=== PATIENT | female | born 2000 | race Caucasian/White ===

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

== ENCOUNTER → 2021-07-20 11:48 | Outpatient (CLI) | payer OTHER, SELFPAY ==
--- NOTE | 2021-07-20 12:00 | RAD_ITS ---
STUDY: X-RAY - ABDOMEN/PELVIS REASON FOR EXAM: Female, 21 years old. Flank pain TECHNIQUE: Two AP supine views of the abdomen and pelvis. COMPARISON: None. FINDINGS: Normal visualized lung bases. There is an unremarkable bowel gas pattern. There is no demonstrated free abdominal air. The visualized liver, spleen and kidneys are grossly normal in size and morphology. No demonstrated calcification overlying either renal shadow, over, there is a subtle 2 mm calcification in the left hemipelvis which could be within the distal left ureter. Normal soft tissue structures. Normal visualized osseous structures. RAD/Abdomen Single View IMPRESSION: Possible left ureteral lithiasis No demonstrated calcifications overlying either renal shadow Electronically Signed: Eloy Scott MD at 13:27 EST , Service support ,
[2021-07-20 13:10] LABS: Mucous, Urine 0 SEEN /hpf (<or=2+)
[2021-07-20 13:35] LABS: Color, Urine Yellow (Yellow); Glucose, Dipstick Normal (Normal); Ketone-Dipstick Negative (Negative); Leukocyte Esterase-Dipstick Negative /ul (Negative); Nitrite-Dipstick Negative (Negative); Occult Blood-Urine 250 /ul (Negative); Protein-Dipstick 15 mg/dl (Negative); Urine Bilirubin Dipstick Negative (Negative); Urine Clarity Sl. Cloudy (Clear); Urine Urobilinogen Normal (Normal)
[2021-07-20 13:52] LABS: Red Blood Cells-Urine > 100 SEEN /hpf (0-5)
[2021-07-20 13:53] LABS: Squamous Epithelial Cells - UA 0-5 SEEN /hpf (5-10); White Blood Cells 0-5 SEEN /hpf (0-5)
[2021-07-20 13:54] LABS: Bacteria RARE /hpf (None Seen)
== END ==
PROVIDERS: Physician Assistant; PCP Family Medicine; Visit Provider Family Medicine
DX: N20.0 Calculus of kidney (principal); R10.9 Unspecified abdominal pain; R30.0 Dysuria
CPT/HCPCS: 74018; 81001; 87086; 87088

== ENCOUNTER 2021-07-23 22:08 | Emergency (ER) | payer OTHER, SELFPAY ==
[2021-07-23 22:08] VITALS: BP 130/92; PULSE 90; RESP 16; TEMP 36.6; O2SAT 100; BMI 24.7
--- NOTE | 2021-07-23 23:10 | CT_ITS ---
STUDY: CT ABDOMEN AND PELVIS WITHOUT CONTRAST REASON FOR EXAM: Female, 21 years old. Pain RADIATION DOSAGE (If Supplied By Facility): CTDIvol = ( 7.10 ) mGy, DLP = ( 338.99 ) mGycm TECHNIQUE: Transaxial images were obtained from the dome of the diaphragm to the symphysis pubis without oral contrast, and without intravenous contrast. Sagittal and coronal images were reconstructed. Individualized dose optimization techniques were used for this CT. COMPARISON: None FINDINGS: The visualized lung bases are unremarkable. The visualized portions of the heart are within normal limits. Normal liver. Normal gallbladder and extrahepatic biliary system. Normal spleen. Normal pancreas. Normal bilateral adrenal glands. Normal right kidney. There is a 4 mm calculus in the distal left ureteral at the ureterovesicular junction causing mild upstream hydroureter and calyceal dilatation. Several additional tiny punctate 1 to 2 mm nonobstructive left renal calculi. Normal visualized stomach. Normal small intestine. Normal colon. The appendix is visualized and appears normal. Normal abdominal aorta. Normal inferior vena cava. Normal retroperitoneum. Normal urinary bladder. Normal abdominal wall. Normal osseous structures. CT/Abdomen/Pelvis without Cont IMPRESSION: 4 mm calculus in the distal left ureter at the ureterovesicular junction. Mild upstream hydroureter. Electronically Signed: Alpesh Beltrán MD at 0:20 EST Tel , Service support ,
--- NOTE | 2021-07-23 23:12 | EDS_ITS ---
HPI HPI - GI History of Present Illness Chief Complaint: Flank Pain Informant: patient Abdominal Pain/Flank Pain Onset: Days Context: Gradual Onset Timing: Continuous Current Severity: Mild Maximum Severity: Mild Worsened by: Nothing Relieved by: Nothing Nausea/Vomiting/Emesis GI Symptom: Negative for Nausea and Vomiting Diarrhea/Melena/Hematochezia GI Symptom: Negative for Diarrhea and Melena Associated Symptoms Associated Symptoms: Negative for Dysuria, Frequency and Hematuria Narrative Narrative: 21-year-old female no sniffing past medical or surgical history currently on control pills and Lexapro. States last Sunday a week ago started having flank pain. At times been on left other times on the right. She was treated in our clinic on July 20 had a KUB and a urinalysis and was told she might have a kidney stone. Today she had one episode of nausea and vomiting and the pain got worse. She denies any dysuria or hematuria. She is never had a kidney stone before she denies any prior abdominal surgery she has had no abdominal or back trauma. No fever. Prior similar symptoms: No Recent Illness/Hospitalization: No PFSH PFSH Medical History ACL (anterior cruciate ligament) tear Contact dermatitis due to poison debbie Hematuria Low back pain Home Medications norethindrone-ethin estradiol 1 ea PO DAILY 08/02/19 [History Last Taken 08/02/19] escitalopram oxalate 5 mg tablet 10 mg PO DAILY 04/14/21 [History Last Taken Unknown] Allergy/AdvReac Type Severity Reaction Status Date / Time No Known Allergies Allergy Verified 07/23/21 22:13 Social History Smoking Status: Never smoker ROS ROS ED ROS Narrative Back pain. Review of Systems ROS Unobtainable: Denies due to encephalopathy Constitutional Constitutional ED: Denies fever(s) ENT ENT ED: Denies ear pain Cardiovascular Cardiovascular: Denies chest pain Respiratory/Chest Respiratory/Chest: Denies dyspnea Gastrointestinal Gastrointestinal: Reports nausea and vomiting; Denies abdominal pain Genitourinary Genitourinary ED: Denies dysuria Musculoskeletal Musculoskeletal: Reports back pain; Denies myalgias Integumentary Denies rash Neurologic Neurologic: Denies headache(s) Psychiatric Psychiatric: Denies depression Endocrine Endocrinology: Denies polyuria Hematologic/Lymphatic Hematologic/Lymphatic: Denies easy bruising Allergic/Immunologic Allergic/Immunologic ED: Denies urticaria EXAM Physical Exam Narrative Exam Narrative: Young healthy female no acute distress vital signs stable afebrile. HEENT exam unremarkable. Neck nontender. Lungs clear to auscultation. Heart regular rhythm no murmur. Abdomen soft nontender. Moving all 4 extremities. Calves are nontender without edema or cords. Back there is no reproducible back tenderness or any signs of trauma. Moving all 4 ext remities. Nontender no edema. Neurologically awake and alert. No focal motor deficits. Young female with a very benign exam with no reproducible pain. Const Vital Signs: 07/23/21 22:08 07/24/21 00:36 Temperature 97.9 F Temperature Source Temporal Pulse Rate 90 99 Respiratory Rate 16 16 Blood Pressure 130/92 H 138/94 H Blood Pressure Mean 104 108 Pulse Ox 100 100 Oxygen Delivery Method Room Air Room Air Positive well nourished and well developed; Negative for obese, cachectic, contractures or unkempt General Appearance ED: well developed and NAD; Negative for unkempt, cachectic or contractures Nutritional Appearance: Negative for cachectic or obese HEENT Reports moist mucous membranes normocephalic and atraumatic Eyes PERRL and EOMs intact bilaterally Neck no lymphadenopathy, supple and no JVD General: Negative for tenderness Resp normal respiratory effort and clear to auscultation bilaterally Cardio regular rate, regular rhythm, S1 normal heart sound, S2 normal heart sound and no murmurs GI non-tender, non-distended and no masses Auscultation: normoactive bowel sounds Palpation: soft; Negative for tender, guarding or rigid Back/Spine no CVA tenderness General Back: Negative for CVA tenderness Cervical Spine: Negative for cervical spine tenderness Thoracic Spine / Upper Back: Negative for thoracic spinal tenderness Lumbar Spine / Lower Back: Negative for lumbar spinal tenderness Extremity full ROM General Extremety ED: Negative for edema or tenderness General Extremity: Negative for edema Neuro moves all extremities Sensorium / Orientation: alert, oriented to person, oriented to place and oriented to time; Negative for confused, lethargic or stuporous Motor Exam: strength 5/5 throughout Psych mental status grossly normal and thought process normal Appearance: Negative for unkempt Skin Lesions: no lesions Rashes: no rashes MDM MDM MDM Narrative Medical decision making narrative: 21-year-old female with flank pain is been going on now a week. She had a KUB and a urinalysis. Thought to possibly have a kidney stone. Pain is worse today. She has a sister with kidney stones but she is never had one herself. She has no back trauma. Exam is benign. She undergo a CAT scan and labs. She does not need anything for pain or nausea at this time. Repeat exam patient is doing well at 12:45 AM. She will be discharged to home. She chose to treat her pain with ibuprofen and Tylenol. Lab Data Attestation: I reviewed the patient's lab results. Lab results narrative: CBC unremarkable white count 9. Hemoglobin 13. Electrolytes show potassium of 3.1 gap of 5 normal BUN and creatinine of 1 glucose 95 urine no nitrites 5-10 red cells no white cells 1+ bacteria. Serum test negative. CAT scan showed a 4 mm distal ureter stone with mild hydroureter. Labs: Laboratory Results - last 24 hr 07/23/21 07/23/21 07/23/21 22:24 22:27 22:27 WBC 9.1 RBC 4.00 L Hgb 13.2 Hct 38.0 MCV 95.0 MCH 33.0 H MCHC 34.7 RDW Std Deviation 42.2 RDW Coeff of [place] 12.0 Plt Count 254 MPV 10.1 Immature Gran % (Auto) 0.300 Neut % (Auto) 65.5 Lymph % (Auto) 21.2 [place] % (Auto) 10.4 H Eos % (Auto) 2.3 Baso % (Auto) 0.3 Absolute Neuts (auto) 6.0 Absolute Lymphs (auto) 1.94 Nucleated RBC % 0 Sodium 139 Potassium 3.1 L Chloride 107 Carbon Dioxide 27.0 Anion Gap 5 BUN 9 Creatinine 1.07 H Estim Creat Clear Calc 77.86 Est GFR (MDRD) Af Amer 83 Est GFR (MDRD) Non-Af 68 BUN/Creatinine Ratio 8.4 L Glucose 95 Calcium 8.6 Serum , Qual Urine Color Yellow Urine Clarity Clear Urine pH 5.0 Ur Specific [place] 1.025 Urine Protein 15 H Urine Glucose (UA) Normal Urine Ketones Negative Urine Occult Blood 50 H Urine Nitrite Negative Urine Bilirubin Negative Urine Urobilinogen Normal Ur Leukocyte Esterase Negative Urine RBC 5-10 SEEN Urine WBC 0-5 SEEN Ur Squamous Epith Cells 0-5 SEEN Urine Bacteria 1+ Urine Mucus 2+ 07/23/21 22:27 WBC RBC Hgb Hct MCV MCH MCHC RDW Std Deviation RDW Coeff of [place] Plt Count MPV Immature Gran % (Auto) Neut % (Auto) Lymph % (Auto) [place] % (Auto) Eos % (Auto) Baso % (Auto) Absolute Neuts (auto) Absolute Lymphs (auto) Nucleated RBC % Sodium Potassium Chloride Carbon Dioxide Anion Gap BUN Creatinine Estim Creat Clear Calc Est GFR (MDRD) Af Amer Est GFR (MDRD) Non-Af BUN/Creatinine Ratio Glucose Calcium Serum , Qual NEGATIVE Urine Color Urine Clarity Urine pH Ur Specific [place] Urine Protein Urine Glucose (UA) Urine Ketones Urine Occult Blood Urine Nitrite Urine Bilirubin Urine Urobilinogen Ur Leukocyte Esterase Urine RBC Urine WBC Ur Squamous Epith Cells Urine Bacteria Urine Mucus Radiography Diagnostic Testing: Clinical Impression(s) from Imaging Studies Abdomen/Pelvis CT 07/23/21 23:10 IMPRESSION: 4 mm calculus in the distal left ureter at the ureterovesicular junction. Mild upstream hydroureter. Electronically Signed: Alpesh Beltrán MD at 0:20 EST Tel , Service support , Discharge Plan Triage Chief Complaint: Flank Pain ED Provider: Santo Sheikh Dx/Rx/DC Orders Clinical Impression: Low back pain, Kidney stone on left side Instructions: ED Kidney Stone w/ Colic Prescriptions: No Action escitalopram oxalate [Lexapro] 5 mg tablet 10 mg PO DAILY RF: 0 norethindrone-ethin estradiol 1 EACH tablet 1 ea PO DAILY RF: 0 Primary Care Provider: Ama Ornelas Referrals: Ama Ornelas DO [Primary Care Provider] - 3-5 Days if not improving Activity Restrictions/Additional Instructions: Plenty of fluids and rest. Motrin and Tylenol for pain. Follow-up with your doctor if not improving. Return if increasing pain, fever or intractable vomiting. You have a 4 mm kidney stone almost to your bladder on the left. It should pass. Disposition Disposition: Home, Self Care
[2021-07-23 23:26] LABS: Color, Urine Yellow (Yellow); Glucose, Dipstick Normal (Normal); Ketone-Dipstick Negative (Negative); Leukocyte Esterase-Dipstick Negative /ul (Negative); Nitrite-Dipstick Negative (Negative); Occult Blood-Urine 50 /ul (Negative); Protein-Dipstick 15 mg/dl (Negative); Specific Gravity, Urine 1.025 (1.002-1.030); Urine Bilirubin Dipstick Negative (Negative); Urine Clarity Clear (Clear); Urine Urobilinogen Normal (Normal)
[2021-07-23 23:30] LABS: Internal QC Validated? YES +Cl - CLEAR BKGD; Pregnancy, Serum, hCG Quali. NEGATIVE Negative
[2021-07-23 23:34] LABS: Anion Gap 5 (5-15); BUN 9 mg/dL (7-18); BUN/Creat Ratio 8.4 RATIO (10-20); Calcium,Total 8.6 mg/dL (8.5-10.1); Chloride 107 mmol/L (98-107); Creatinine, Serum 1.07 mg/dL (0.55-1.02); EST Glomerular Filtration Rate 68 mL/min (>60); Est Glom Filt Rate - Afr Amer 83 mL/min (>60); Estimated Creatinine Clearance 77.86 ml/min; Glucose 95 mg/dL (74-106); Potassium 3.1 mmol/L (3.5-5.1); Sodium Level 139 mmol/L (136-145)
[2021-07-23 23:38] LABS: Absolute Lymphocyte Count 1.94 X10^3/uL (0.83-4.51); Basophil# 0.03 X10^3/uL; Basophil% 0.3 % (0-1); Eosinophil# 0.21 X10^3/uL; Eosinophils% 2.3 % (0-5); Hemoglobin 13.2 g/dL (12.0-15.0); Lymphocyte # 1.94 X10^3/ul (0.83-4.51); Lymphocyte % 21.2 % (19-41); Mean Corp Hgb Conc 34.7 g/dL (32-36); Mean Platelet Vol. 10.1 fl (6.2-12.0); Monocyte# 0.95 X10^3/uL; Monocyte% 10.4 % (0-10); NRBC Flagged by Analyzer 0 % (0-5); Neutrophil # 5.98 X10^3/uL (2.7-7.7); Neutrophil % 65.5 % (47-70); Platelet Count 254 K/mm3 (150-450); RBC Distribution Width SD 42.2 fl (35.1-43.9); White Blood Count 9.1 K/mm3 (4.4-11.0)
[2021-07-23 23:51] LABS: Bacteria 1+ /hpf (None Seen); Mucous, Urine 2+ /hpf (<or=2+); Red Blood Cells-Urine 5-10 SEEN /hpf (0-5); Squamous Epithelial Cells - UA 0-5 SEEN /hpf (5-10); White Blood Cells 0-5 SEEN /hpf (0-5)
[2021-07-24 00:36] VITALS: BP 138/94; PULSE 99; RESP 16; O2SAT 100
== END 2021-07-24 00:58 | disposition home or self-care (01) ==
PROVIDERS: Emergency Provider Emergency Medicine; PCP Family Medicine
DX: N20.2 Calculus of kidney with calculus of ureter (principal); M54.50 Low back pain, unspecified
CPT/HCPCS: 74176; 80048; 81001; 84703; 85025; 99283; A4216

== ENCOUNTER → 2021-08-16 14:06 | Outpatient (CLI) | payer OTHER, SELFPAY ==
[2021-08-22 14:04] LABS: HPV Reflexed? NOT INDICATED
== END ==
PROVIDERS: PCP Family Medicine; Visit Provider Obstetrics & Gynecology
DX: Z12.4 Encounter for screening for malignant neoplasm of cervix (principal)
CPT/HCPCS: 88175; G0145

== ENCOUNTER 2021-10-26 12:02 | Outpatient (CLI) | payer OTHER, SELFPAY ==
[2021-10-26 15:42] LABS: AST(SGOT) 21 U/L (15-37); Alanine Aminotransfer ALT/SGPT 20 U/L (13-56); Albumin, Serum 4.2 g/dL (3.2-5.0); Alkaline Phosphatase 62 U/L (45-117); Anion Gap 7 (5-15); BUN 7 mg/dL (7-18); BUN/Creat Ratio 8.6 RATIO (10-20); Calcium,Total 9.6 mg/dL (8.5-10.1); Chloride 105 mmol/L (98-107); Cholesterol 209 mg/dL (200); Creatinine, Serum 0.81 mg/dL (0.55-1.02); EST Glomerular Filtration Rate 94 mL/min (>60); Est Glom Filt Rate - Afr Amer 113 mL/min (>60); Free T3 2.5 pg/mL (2.18-3.98); Globulin 4.2 g/dL (2.2-4.2); Glucose 80 mg/dL (74-106); High Density Lipoprotein 60 mg/dL; Iron 49 ug/dL (50-170); Potassium 3.7 mmol/L (3.5-5.1); Protein, Total 8.4 g/dL (6.4-8.2); Sodium Level 138 mmol/L (136-145); Thyroid Stim Hormone (TSH) 1.86 uIU/mL (0.358-3.74); Triglycerides 88 mg/dL; Very Low Density Lipoprotein 18 mg/dL (5-40)
[2021-10-26 16:02] LABS: Hepatitis B Surface Antibody Reactive; Rubella IgG Reactive (Nonreactive); Vitamin B12 408 pg/mL (211-911); Vitamin D,25 Hydroxy 26.8 ng/mL
[2021-10-28 22:07] LABS: QNTFERON TB Mitogen Value > 10.00 IU/mL (.); QNTFERON TB Nil Value 0.07 IU/mL (.); QNTFERON TB1+ Ag Value 0.09 IU/mL (.); QNTFERON TB2+ Ag Value 0.08 IU/mL (.)
[2021-10-28 22:18] LABS: Mumps Antibody,IgG < 9.0 AU/mL (Immune >10.9); QNTIFERON TB Positive Criteria Negative (Negative); Rubeola IgG Ab 44.8 AU/mL (Immune >16.4); V-Zoster IgG (Immunity) 1491 index (Immune >165)
== END 2021-10-26 23:59 | disposition home or self-care (01) ==
LOC: MTLAB 12:04
PROVIDERS: PCP Family Medicine; Referring Provider Family Medicine; Visit Provider Family Medicine
DX: E03.9 Hypothyroidism, unspecified (principal); Z01.84 Encounter for antibody response examination; E55.9 Vitamin D deficiency, unspecified; E53.8 Deficiency of other specified B group vitamins; D64.9 Anemia, unspecified; Z91.89 Other specified personal risk factors, not elsewhere classified
CPT/HCPCS: 36415; 80053; 80061; 82306; 82607; 83540; 84439; 84443; 84481; 86480; 86706; 86735; 86762; 86765; 86787

== ENCOUNTER → 2022-11-04 | Outpatient (CLI) | payer OTHER, SELFPAY ==
[2022-11-04 15:02] LABS: Mucous, Urine 0 SEEN /hpf (<or=2+); White Blood Cells 0 SEEN /hpf (0-5)
[2022-11-04 15:14] LABS: Color, Urine Yellow (Yellow); Glucose, Dipstick Normal (Normal); Ketone-Dipstick 15 mg/dl (Negative); Leukocyte Esterase-Dipstick Negative /ul (Negative); Nitrite-Dipstick Negative (Negative); Occult Blood-Urine 250 /ul (Negative); Protein-Dipstick 15 mg/dl (Negative); Specific Gravity, Urine 1.005 (1.002-1.030); Urine Bilirubin Dipstick Negative (Negative); Urine Clarity Clear (Clear); Urine Urobilinogen Normal (Normal)
[2022-11-04 15:23] LABS: Squamous Epithelial Cells - UA 0-5 SEEN /hpf (5-10)
[2022-11-04 15:24] LABS: Bacteria RARE /hpf (None Seen); Red Blood Cells-Urine 0-5 SEEN /hpf (0-5)
== END | disposition home or self-care (01) ==
PROVIDERS: PCP Family Medicine; Visit Provider Physician Assistant
DX: R31.9 Hematuria, unspecified (principal)
CPT/HCPCS: 81001; 87086

== ENCOUNTER → 2022-11-07 | Outpatient (CLI) | payer OTHER, SELFPAY ==
[2022-11-17 09:06] LABS: Source Not Provided
== END | disposition home or self-care (01) ==
LOC: LAB.FUTURE 11-09 08:25
PROVIDERS: PCP Family Medicine; Referring Provider Family Medicine; Visit Provider Family Medicine
DX: N20.0 Calculus of kidney (principal)
CPT/HCPCS: 82360

== ENCOUNTER → 2023-12-03 | Outpatient (CLI) | payer OTHER, SELFPAY ==
[2023-12-03 10:25] LABS: Absolute Lymphocyte Count 1.34 X10^3/uL (0.83-4.51); Basophil# 0.03 X10^3/uL; Basophil% 0.4 % (0-1); Eosinophil# 0.02 X10^3/uL; Eosinophils% 0.3 % (0-5); Hematocrit 43.6 % (37-47); Hemoglobin 15.4 g/dL (12.0-15.0); Lymphocyte # 1.34 X10^3/ul (0.83-4.51); Lymphocyte % 19.2 % (19-41); Mean Corp Hgb Conc 35.3 g/dL (32-36); Mean Corpuscular Hgb 33.4 pg (27.0-32.0); Mean Corpuscular Volume 94.6 fL (81-99); Mean Platelet Vol. 10.3 fl (6.2-12.0); Monocyte# 0.55 X10^3/uL; Monocyte% 7.9 % (0-10); NRBC Flagged by Analyzer 0 % (0-5); Neutrophil # 5.02 X10^3/uL (2.7-7.7); Neutrophil % 72.1 % (47-70); Platelet Count 315 K/mm3 (150-450); RBC Distribution Width CV 11.6 % (11.6-14.6); RBC Distribution Width SD 39.6 fl (35.1-43.9); Red Blood Count 4.61 M/mm3 (4.2-5.4)
[2023-12-03 11:13] LABS: AST(SGOT) 26 U/L (15-37); Alanine Aminotransfer ALT/SGPT 36 U/L (13-56); Albumin, Serum 4.1 g/dL (3.2-5.0); Alkaline Phosphatase 52 U/L (45-117); Anion Gap 7 (5-15); BUN 6 mg/dL (7-18); BUN/Creat Ratio 7.6 RATIO (10-20); Calcium,Total 9.2 mg/dL (8.5-10.1); Chloride 105 mmol/L (98-107); Creatinine, Serum 0.79 mg/dL (0.55-1.02); EST Glomerular Filtration Rate 95 mL/min (>60); Est Glom Filt Rate - Afr Amer 115 mL/min (>60); Free T3 2.7 pg/mL (2.18-3.98); Glucose 92 mg/dL (74-106); Magnesium 2.2 mg/dL (1.6-2.6); Potassium 3.1 mmol/L (3.5-5.1); Protein, Total 8.1 g/dL (6.4-8.2); Sodium Level 138 mmol/L (136-145); T4 Free Direct 1.49 ng/dL (0.76-1.46); Thyroid Stim Hormone (TSH) 1.46 uIU/mL (0.358-3.74)
== END | disposition home or self-care (01) ==
LOC: MTLAB 09:19
PROVIDERS: PCP Family Medicine; Referring Provider Family Medicine; Visit Provider Family Medicine
DX: R19.7 Diarrhea, unspecified (principal); R53.83 Other fatigue; B34.9 Viral infection, unspecified; R00.0 Tachycardia, unspecified
CPT/HCPCS: 36415; 80053; 83735; 84439; 84443; 84481; 85025; 87506

== ENCOUNTER → 2025-06-17 | Outpatient (CLI) | payer OTHER, SELFPAY ==
--- NOTE | 2025-06-17 07:27 | US_ITS ---
PROCEDURE: ABDOMEN LIMITED 06/17/2025 REASON FOR EXAM: RUQ PAIN, RIGHT FLANK PAIN, NAUSEA TECHNIQUE: Procedure Code: USABDL Modality: US Procedure: ABDOMEN LIMITED COMPARISON: None FINDINGS: GALLBLADDER: No gallstones. no gallbladder wall thickening or pericholecystic fluid. Negative Aguilera sign. COMMON BILE DUCT: Measures 3.2 mm. No intrahepatic biliary dilatation. LIVER: Normal size. Normal echotexture. No definite hepatic mass. RIGHT KIDNEY: Normal in size and echogenicity. No mass. No urinary stones. No hydronephrosis. US/Abdomen Limited IMPRESSION: No acute cholecystitis. Reading Location: [id number]
--- NOTE | 2025-06-17 07:27 | US_ITS ---
PROCEDURE: ABDOMEN LIMITED 06/17/2025 REASON FOR EXAM: RUQ PAIN, RIGHT FLANK PAIN, NAUSEA TECHNIQUE: Procedure Code: USABDL Modality: US Procedure: ABDOMEN LIMITED COMPARISON: None FINDINGS: GALLBLADDER: No gallstones. no gallbladder wall thickening or pericholecystic fluid. Negative Aguilera sign. COMMON BILE DUCT: Measures 3.2 mm. No intrahepatic biliary dilatation. LIVER: Normal size. Normal echotexture. No definite hepatic mass. RIGHT KIDNEY: Normal in size and echogenicity. No mass. No urinary stones. No hydronephrosis. US/Abdomen Limited IMPRESSION: No acute cholecystitis. Reading Location: [id number]
--- OUTSIDE RECORDS SUMMARY | 2025-06-17 07:36 | XMS RPT_ITS | CCD ---
Author Organization [facility] Care Team Providers Care Stapler Coil Unit Name Role Phone Dr. Ama Ornelas Primary Care Provider [phone] Dr. Ama Ornelas Referring Provider CINDY London Attending Provider Dr. Azul Rene Attending Provider [phone] CINDY Padilla Attending Provider [phone] Malys, Ama Primary Care Unavailable Malys, Ama Attending Unavailable Malys, Ama Referring Unavailable Assessment, Health Risk Attending Unavaila ble Assessment, Health Risk Referring Unavaila ble Malys, Ama Primary Care Unavailable Malys, Ama Primary Care Unavailable Malys, Ama Attending Unavailable Malys, Ama Referring Unavailable Medications Current Medications Medication Drug Class(es) Dates Sig (Normalized) Sig (Original) escitalopram 5 mg oral tablet (3 sources) Serotonin Reuptake Inhibitor Start: 04-14-2021 take 2 tablets by mouth once daily Escitalopram Oxalate (Lexapro) 5 mg tablet Active 10 MG PO DAILY April 14, 2021 12:00am Norethindrone-Ethin Estradiol (6 sources) Estrogen Start: 10-27-2022 take 1 tablet by mouth once daily Norethindrone-Ethin Estradiol Active 1 TABLET PO DAILY October 27, 2022 2:11pm Start: 08-02-2019 End: 10-27-2022 Norethindrone-Ethin Estradio l Discontinued 1 EACH PO DAILY August 02, 2019 1:00am October 27, 2022 2:11pm Completed/Discontinued Medications Medication Drug Class(es) Dates Sig (Normalized) Sig (Original) amoxicillin 875 mg / clavulanate 125 mg oral tablet (3 sources) Penicillin-class Antibacterial Start: 01-06-2022 End: 01-16-2022 take 1 tablet by mouth every twelve hours Amoxicillin-Pot Clavulanate Discontinued 1 TABLET PO Q12H 08 06January 06, 2022 12:00am January 16, 2022 12:03am dexamethasone 6 mg oral tablet (3 sources) Corticosteroid Start: 08-16-2022 End: 10-27-2022 take 6 mg by mouth once daily Dexamethasone Discontinued 6 MG PO DAILY August 16, 2022 1:00am October 27, 2022 2:01pm Problems Problem Classification Problem Date Documented Da te Episodic/Chronic Allergic reactions (3 sources) Contact dermatitis due to poison debbie; Translations: [Allergic contact dermatitis due to plants, except food] 04-14-2021 Episodic Anxiety disorders (3 sources) Anxiety; Translations: [Anxiety disorder, unspecified] 10-27-2022 Chronic Calculus of urinary tract (3 sources) Kidney stone; Translations: [Calculus of kidney] 08-01-2021 Episodic Cardiac dysrhythmias (3 sources) ECG: sinus tachycardia; Translations: [Tachycardia, unspecified] 08-02-2019 Episodic Fever of unknown origin (3 sources) Pyrexia of unknown origin; Translations: [Fever, unspecified] 08-02-2019 Episodic Fluid and electrolyte disorders (6 sources) Dehydration; Translations: [Dehydration] 08-04-2019 Episodic Genitourinary symptoms and ill-defined conditions (5 sources) Blood in urine; Translations: [Hematuria, unspecified] 07-20-2021 Episodic Immunizations and screening for infectious disease (4 sources) Contact with and (suspected) exposure to other viral communicable diseases; Translations: [Contact with or suspected exposure to other viral communicable disease] 01-06-2022 Episodic Other gastrointestinal disorders (1 source) Diarrhea, unspecified; Translations: [Diarrhea, unspecified] Onset: 12-07-2023 Episodic Other upper respiratory infections (3 sources) Sinusitis; Translations: [Chronic sinusitis, unspecified] 01-06-2022 Chronic Spondylosis; intervertebral disc disorders; other back problems (3 sources) Low back pain; Translations: [Low back pain] 07-24-2021 Episodic Unclassified (3 sources) No history of clinical finding in subject; Translations: [No significant past medical history] 08-02-2019 Viral infection (8 sources) Disease caused by 2019-nCoV; Translations: [COVID-19] 08-16-2022 Episodic Results Test Name Value Interpretation Reference Range Facility ENTERIC PATHOGEN PANEL STOOL on 12-04-2023 EP PANEL Not detected for Campylobacter group, Salmonella species, Shigella species, Vibrio Group, Yersinia enterocolitica, EHEC (Shiga Toxin 1, Shiga Toxin 2), Norovirus Gl/Gll, and Rotavirus A. Other common stool pathogens are not detected on this panel include: Aeromonas/Plesiomo ben or parasites. Order testing for these organisms separately if suspected. This is an amplified DNA test which makes it both specific and sensitive. Normal Reference Range = Not Detected GI pathogens Pnl Stl AVNI+probe Nucleic acid amplification test method CAMPYLOBACTER Not Detected Norovirus Not Detected Rotavirus Not Detected Salmonella Not Detected Shiga Toxin Not Detected Shigella sp. Not Detected VIBRIO Not Detected Yersinia Not Detected Normal [facility] Comment on above: Performed By: #### L 500.4050, L506.0400, L100.0100, L501.5200, L501.75822, L501.9520, M100.637 #### [facility] [address] [place], [address] Absolute lymphocyte countOrd ered By: Ama Ornelas on 12-03-2023 Lymphocytes Auto (Unsp spec) [#/Vol] 1.34 10*3/uL 0.83-4.51 [facility] Automated lymphocyte count a s percentage of total leukocytesOrdered By: Ama Ornelas on 12-03-2023 Lymphocytes/100 WBC Auto (Unsp spec) 19.2 % 19-41 [facility] Basophil percentageOrdered B y: Ama Ornelas on 12-03-2023 Basophils/100 WBC (Bld) 0.4 % 0-1 [facility] Bilirubin [Mass/Vol] 0.80 mg/dL 0.20-1.00 [facility] Comment on above: For patients on eltr ombopag therapy, use of Dimension [place] TBIL is not recommended. Chloride [Moles/Vol] 105 mmol/L 98-107 [facility] Eosinophils/100 WBC (Bld) 0.3 % 0-5 [facility] Glucose [Mass/Vol] 92 mg/dL 74-106 [facility] Hemoglobin (Bld) [Mass/Vol] 15.4 g/dL 12.0-15.0 [facility] Monocytes/100 WBC (Bld) 7.9 % 0-10 [facility] Neutrophils (Bld) [#/Vol] 5.0 10*3/uL 2.0-7.7 [facility] Neutrophils/100 WBC (Bld) 72.1 % 47-70 [facility] Potassium [Moles/Vol] 3.1 mmol/L 3.5-5.1 [facility] Protein [Mass/Vol] 8.1 g/dL 6.4-8.2 [facility] Sodium [Moles/Vol] 138 mmol/L 136-145 [facility] WBC (Bld) [#/Vol] 7.0 10*3/uL 4.4-11.0 [facility] CBC W/Diff, Automatedon 11-18 Absolute Lymph 1.34 X10 3/uL Normal 0.83-4.51 [facility] Comment on above: Performed By: #### L 500.4050, L506.0400, L100.0100, L501.5200, L501.75029, L501.9520, M100.637 #### [facility] [address] [facility] [place], [address] Absolute Neut 5.0 X10 3/uL Normal 2.0-7.7 [facility] Comment on above: Performed By: #### L 500.4050, L506.0400, L100.0100, L501.5200, L501.13468, L501.9520, M100.637 #### [facility] [address] [place], [address] Basophils/100 WBC (Bld) 0.4 % Normal 0-1 [facility] Comment on above: Performed By: #### L 500.4050, L506.0400, L100.0100, L501.5200, L501.35923, L501.9520, M100.637 #### [facility] [address] [place], [address] Eosinophils/100 WBC (Bld) 0.3 % Normal 0-5 [facility] Comment on above: Performed By: #### L 500.4050, L506.0400, L100.0100, L501.5200, L501.47201, L501.9520, M100.637 #### [facility] [address] [place], [address] Erythrocyte distribution width (RBC) [Ratio] 11.6 % Normal 11.6-14.6 [facility] Comment on above: Performed By: #### L 500.4050, L506.0400, L100.0100, L501.5200, L501.45864, L501.9520, M100.637 #### [facility] [address] [place], [address] Hematocrit (Bld) [Volume fraction] 43.6 % Normal 37-47 [facility] Comment on above: Performed By: #### L 500.4050, L506.0400, L100.0100, L501.5200, L501.64550, L501.9520, M100.637 #### [facility] [address] [place], [address] Hemoglobin (Bld) [Mass/Vol] 15.4 g/dL High 12.0-15.0 [facility] Comment on above: Performed By: #### L 500.4050, L506.0400, L100.0100, L501.5200, L501.49307, L501.9520, M100.637 #### [facility] [address] [place], [address] IG% 0.100 Normal 0.0-0.9 [facility] Comment on above: Result Comment: IG% - Immature Granulocytes (promyelocytes, myelocytes and metamyelocytes) > 1% indicates that a LEFT SHIFT is Present. Performed By: #### L 500.4050, L506.0400, L100.0100, L501.5200, L501.10858, L501.9520, M100.637 #### [facility] [address] [place], [address] Lymphocytes/100 WBC (Bld) 19.2 % Normal 19-41 [facility] Comment on above: Performed By: #### L 500.4050, L506.0400, L100.0100, L501.5200, L501.20449, L501.9520, M100.637 #### [facility] [address] [place], [address] MCH (RBC) [Entitic mass] 33.4 pg High 27.0-32.0 [facility] Comment on above: Performed By: #### L 500.4050, L506.0400, L100.0100, L501.5200, L501.00127, L501.9520, M100.637 #### [facility] [address] [place], [address] MCHC (RBC) [Mass/Vol] 35.3 g/dL Normal 32-36 [facility] Comment on above: Performed By: #### L 500.4050, L506.0400, L100.0100, L501.5200, L501.83890, L501.9520, M100.637 #### [facility] [address] [place], [address] MCV (RBC) [Entitic vol] 94.6 fL Normal 81-99 [facility] Comment on above: Performed By: #### L 500.4050, L506.0400, L100.0100, L501.5200, L501.06952, L501.9520, M100.637 #### [facility] [address] [place], [address] Monocytes/100 WBC (Bld) 7.9 % Normal 0-10 [facility] Comment on above: Performed By: #### L 500.4050, L506.0400, L100.0100, L501.5200, L501.44828, L501.9520, M100.637 #### [facility] [address] [place], [address] Neutrophils/100 WBC (Bld) 72.1 % High 47-70 [facility] Comment on above: Performed By: #### L 500.4050, L506.0400, L100.0100, L501.5200, L501.95929, L501.9520, M100.637 #### [facility] [address] [place], [address] Nucleated RBC (Bld) [#/Vol] 0 10*3/uL Normal 0-5 [facility] Comment on above: Performed By: #### L 500.4050, L506.0400, L100.0100, L501.5200, L501.54284, L501.9520, M100.637 #### [facility] [address] [place], [address] Platelet mean volume (Bld) [Entitic vol] 10.3 fL Normal 6.2-12.0 [facility] Comment on above: Performed By: #### L 500.4050, L506.0400, L100.0100, L501.5200, L501.31879, L501.9520, M100.637 #### [facility] [address] [place], [address] Platelets (Bld) [#/Vol] 315 10*3/uL Normal 150-450 [facility] Comment on above: Performed By: #### L 500.4050, L506.0400, L100.0100, L501.5200, L501.72910, L501.9520, M100.637 #### [facility] [address] [place], [address] RBC (Bld) [#/Vol] 4.61 10*6/uL Normal 4.2-5.4 [facility] Comment on above: Performed By: #### L 500.4050, L506.0400, L100.0100, L501.5200, L501.02070, L501.9520, M100.637 #### [facility] [address] [place], [address] RDW SD 39.6 fl Normal 35.1-43.9 [facility] Comment on above: Performed By: #### L 500.4050, L506.0400, L100.0100, L501.5200, L501.48988, L501.9520, M100.637 #### [facility] [address] [place], [address] WBC (Bld) [#/Vol] 7.0 10*3/uL Normal 4.4-11.0 [facility] Comment on above: Performed By: #### L 500.4050, L506.0400, L100.0100, L501.5200, L501.12391, L501.9520, M100.637 #### [facility] [address] [place], [address] Comprehensive Metabolic Prof akon 12-03-2023 Albumin [Mass/Vol] 4.1 g/dL Normal 3.2-5.0 [facility] Comment on above: Performed By: #### L 500.4050, L506.0400, L100.0100, L501.5200, L501.02488, L501.9520, M100.637 #### [facility] [address] [place], [address] Albumin/Globulin [Mass ratio] 1.0 {ratio} Normal 0.9-2.4 [facility] Comment on above: Performed By: #### L 500.4050, L506.0400, L100.0100, L501.5200, L501.37556, L501.9520, M100.637 #### [facility] [address] [place], [address] ALK P 52 U/L Normal 45-117 [facility] Comment on above: Performed By: #### L 500.4050, L506.0400, L100.0100, L501.5200, L501.33852, L501.9520, M100.637 #### [facility] [address] [place], [address] ALT [Catalytic activity/Vol] 36 U/L Normal 13-56 [facility] Comment on above: Performed By: #### L 500.4050, L506.0400, L100.0100, L501.5200, L501.45558, L501.9520, M100.637 #### [facility] [address] [place], [address] AST [Catalytic activity/Vol] 26 U/L Normal 15-37 [facility] Comment on above: Performed By: #### L 500.4050, L506.0400, L100.0100, L501.5200, L501.59240, L501.9520, M100.637 #### [facility] [address] [place], [address] Bilirubin [Mass/Vol] 0.80 mg/dL Normal 0.20-1.00 [facility] Comment on above: Result Comment: For patients on eltrombopag therapy, use of Dimension Douglas TBIL is not recommended. Performed By: #### L 500.4050, L506.0400, L100.0100, L501.5200, L501.49068, L501.9520, M100.637 #### [facility] [address] [place], [address] BUN/CRE 7.6 RATIO Low 10-20 [facility] Comment on above: Performed By: #### L 500.4050, L506.0400, L100.0100, L501.5200, L501.03489, L501.9520, M100.637 #### [facility] [address] [place], [address] CA,Total 9.2 mg/dL Normal 8.5-10.1 [facility] Comment on above: Performed By: #### L 500.4050, L506.0400, L100.0100, L501.5200, L501.09539, L501.9520, M100.637 #### [facility] [address] [place], [address] Chloride [Moles/Vol] 105 mmol/L Normal 98-107 [facility] Comment on above: Performed By: #### L 500.4050, L506.0400, L100.0100, L501.5200, L501.93851, L501.9520, M100.637 #### [facility] [address] [place], [address] CO2 [Moles/Vol] 26.0 mmol/L Normal 21.0-32.0 [facility] Comment on above: Performed By: #### L 500.4050, L506.0400, L100.0100, L501.5200, L501.76403, L501.9520, M100.637 #### [facility] [address] [place], [address] Creatinine [Mass/Vol] 0.79 mg/dL Normal 0.55-1.02 [facility] Comment on above: Result Comment: The validity of the calculated GFR GFRAA in patients over 70 years has not been determined. Clinical correlation is essential. Performed By: #### L 500.4050, L506.0400, L100.0100, L501.5200, L501.41807, L501.9520, M100.637 #### [facility] [address] [place], [address] EST GFR - AA 115 mL/min Normal >60 [facility] Comment on above: Result Comment: Afri can [place] GFR Calc Performed By: #### L 500.4050, L506.0400, L100.0100, L501.5200, L501.52056, L501.9520, M100.637 #### [facility] [address] [place], [address] GAP 7 Normal 5-15 [facility] Comment on above: Performed By: #### L 500.4050, L506.0400, L100.0100, L501.5200, L501.46832, L501.9520, M100.637 #### [facility] [address] [place], [address] GFR/1.73 sq M.predicted among non-blacks MDRD (S/P/Bld) [Vol rate/Area] 95 mL/min/{1.73_m2} Normal >60 [facility] Comment on above: Result Comment: Non- GFR Calc Performed By: #### L 500.4050, L506.0400, L100.0100, L501.5200, L501.99300, L501.9520, M100.637 #### [facility] [address] [place], [address] Globulin (S) [Mass/Vol] 4.0 g/dL Normal 2.2-4.2 [facility] Comment on above: Performed By: #### L 500.4050, L506.0400, L100.0100, L501.5200, L501.14221, L501.9520, M100.637 #### [facility] [address] [place], [address] Glucose [Mass/Vol] 92 mg/dL Normal 74-106 [facility] Comment on above: Performed By: #### L 500.4050, L506.0400, L100.0100, L501.5200, L501.42878, L501.9520, M100.637 #### [facility] [address] [place], [address] Potassium [Moles/Vol] 3.1 mmol/L Low 3.5-5.1 [facility] Comment on above: Performed By: #### L 500.4050, L506.0400, L100.0100, L501.5200, L501.89411, L501.9520, M100.637 #### [facility] [address] [place], [address] Sodium [Moles/Vol] 138 mmol/L Normal 136-145 [facility] Comment on above: Performed By: #### L 500.4050, L506.0400, L100.0100, L501.5200, L501.58441, L501.9520, M100.637 #### [facility] [address] [place], [address] T PROT 8.1 g/dL Normal 6.4-8.2 [facility] Comment on above: Performed By: #### L 500.4050, L506.0400, L100.0100, L501.5200, L501.90748, L501.9520, M100.637 #### [facility] [address] [place], [address] Urea nitrogen [Mass/Vol] 6 mg/dL Low 7-18 [facility] Comment on above: Performed By: #### L 500.4050, L506.0400, L100.0100, L501.5200, L501.29948, L501.9520, M100.637 #### [facility] [address] [place], [address] Determination of erythrocyte mean corpuscular volume (MCV)Ordered By: Ama Ornelas on 12-03-2023 MCV (RBC) [Entitic vol] 94.6 fL 81-99 [facility] Erythrocyte distribution wid th ratioOrdered By: Ama Ornelas on 12-03-2023 Erythrocyte distribution width (RBC) [Ratio] 11.6 % 11.6-14.6 [facility] Erythrocyte distribution wid th standard deviationOrdered By: Ama Ornelas on 12-03-2023 Erythrocyte distribution width (RBC) [Entitic vol] 39.6 fL 35.1-43.9 [facility] Free T3on 12-03-2023 Free T3 [Mass/Vol] 2.7 pg/mL Normal 2.18-3.98 [facility] Comment on above: Performed By: #### L 500.4050, L506.0400, L100.0100, L501.5200, L501.05294, L501.9520, M100.637 #### [facility] [address] [facility] [place], [address] Hematocrit Auto (Bld) [Volum e fraction]Ordered By: Ama Ornelas on 12-03-2023 Hematocrit (Bld) [Volume fraction] 43.6 % 37-47 [facility] Immature granulocytes/100 WB C Auto (Bld)Ordered By: Ama Ornelas on 12-03-2023 Immature granulocytes/100 WBC (Bld) 0.100 % 0.0-0.9 [facility] Comment on above: IG% - Immature Granu locytes (promyelocytes, myelocytes and metamyelocytes) > 1% indicates that a LEFT SHIFT is Present. Laboratory - Chemistry and C hemistry - challengeOrdered By: Ama Ornelas on 12-03-2023 Albumin/Globulin [Mass ratio] 1.0 {ratio} 0.9-2.4 [facility] ALP [Catalytic activity/Vol] 52 U/L 45-117 [facility] ALT [Catalytic activity/Vol] 36 U/L 13-56 [facility] CO2 [Moles/Vol] 26.0 mmol/L 21.0-32.0 [facility] Globulin (S) [Mass/Vol] 4.0 g/dL 2.2-4.2 [facility] Magnesium [Mass/Vol] 2.2 mg/dL 1.6-2.6 [facility] Urea nitrogen/Creatinine [Mass ratio] 7.6 mg/mg 10-20 [facility] Laboratory - Hematology and Cell countsOrdered By: Ama Ornelas on 12-03-2023 MCH (RBC) [Entitic mass] 33.4 pg 27.0-32.0 [facility] MCHC (RBC) [Mass/Vol] 35.3 g/dL 32-36 [facility] Nucleated RBC/100 WBC (Bld) [Ratio] 0 % 0-5 [facility] Platelet mean volume (Bld) [Entitic vol] 10.3 fL 6.2-12.0 [facility] Platelets (Bld) [#/Vol] 315 10*3/uL 150-450 [facility] Magnesiumon 12-03-2023 Magnesium [Mass/Vol] 2.2 mg/dL Normal 1.6-2.6 [facility] Comment on above: Performed By: #### L 500.4050, L506.0400, L100.0100, L501.5200, L501.52959, L501.9520, M100.637 #### [facility] [address] [facility] [place], [address] No Panel InformationOrdered By: Ama Ornelas on 12-03-2023 Estimated GFR (MDRD) Amer 115 mL/min >60 [facility] Comment on above: GFR Calc Estimated GFR (MDRD) Non-Af Amer 95 mL/min >60 [facility] Comment on above: Non- GFR Calc Free Triiodothyronine (T3) pg/dL 2.7 pg/mL 2.18-3.98 [facility] RBC Auto (Bld) [#/Vol]Ordere d By: Ama Ornelas on 12-03-2023 RBC (Bld) [#/Vol] 4.61 10*6/uL 4.2-5.4 [facility] Serum or plasma calcium etta urement (mass/volume)Ordered By: Ama Ornelas on 12-03-2023 Calcium [Mass/Vol] 9.2 mg/dL 8.5-10.1 [facility] Serum or plasma creatinine m easurement (mass/volume)Ordered By: Ama Ornelas on 12-03-2023 Creatinine [Mass/Vol] 0.79 mg/dL 0.55-1.02 [facility] Comment on above: The validity of the calculated GFR & GFRAA in patients over 70 years has not been determined. Clinical correlation is essential. Serum or plasma thyroid stim ulating hormone (TSH) measurement (units/volume)Ordered By: Ama Ornelas on 12-03-2023 TSH Qn 1.46 uIU/mL 0.358-3.74 [facility] Serum or plasma urea nitroge n measurement (mass/volume)Ordered By: Ama Ornelas on 12-03-2023 Urea nitrogen [Mass/Vol] 6 mg/dL 7-18 [facility] Stool enteric pathogen panel by probe and target amplification methodOrdered By: Ama Ornelas on 12-03-2023 Gastrointestinal pathogens panel AVNI+probe (Stl) [facility] T4 Free Directon 12-03-2023 T4 FREE DIRECT 1.49 ng/dL High 0.76-1.46 [facility] Comment on above: Performed By: #### L 500.4050, L506.0400, L100.0100, L501.5200, L501.67662, L501.9520, M100.637 #### [facility] [address] [place], [address] Thin prep Papanicolaou smear with manual screeningOrdered By: Ama Ornelas on 12-03-2023 Thin prep Papanicolaou smear with manual screening 4.1 g/dL 3.2-5.0 [facility] Thin prep Papanicolaou smear with manual screening 26 U/L 15-37 [facility] Thin prep Papanicolaou smear with manual screening 7 5-15 [facility] Thin prep Papanicolaou smear with manual screening 1.49 ng/dL 0.76-1.46 [facility] Thyroid Stim Hormone (TSH)on 12-03-2023 TSH 1.46 uIU/mL Normal 0.358-3.74 [facility] Comment on above: Performed By: #### L 500.4050, L506.0400, L100.0100, L501.5200, L501.61690, L501.9520, M100.637 #### [facility] Laboratory [address] [place], [address] Culture, urineOrdered By: St humberto Cooper on 11-06-2022 Bacteria identified Cx Nom (U) Culture exhibits no growth. [facility] Basophil percentageOrdered B y: David Cooper on 11-04-2022 Basophil percentage 0 SEEN /hpf 0-5 [facility] Bilirubin Test strip Ql (U)O rdered By: David Cooper on 11-04-2022 Bilirubin Ql (U) Negative Negative [facility] Ketones Test strip Ql (U)Ord ered By: David Cooper on 11-04-2022 Ketones Ql (U) 15 mg/dl Negative [facility] Laboratory - Chemistry and C hemistry - challengeon 11-04-2022 HCG ( test) Ql (U) Negative [facility] Bilirubin Ql (U) Negative [facility] Glucose Ql (U) Negative [facility] Ketones Ql (U) Moderate (40+) [facility] pH (U) 5.0 [pH] [facility] Specific gravity (U) [Rel density] 1.005 [facility] Urobilinogen (U) [Mass/Vol] 0.6285388 mg/dL [facility] Laboratory - Hematology and Cell countson 11-04-2022 Hemoglobin Ql (U) Hemolyzed [facility] Laboratory - Specimen inform ationon 11-04-2022 Clarity (U) Cloudy [facility] Color (U) YELLOW [facility] Laboratory - Urinalysison Protein Ql (U) Trace [facility] Mucus LM Ql (Urine sed)Order ed By: David Cooper on 11-04-2022 Mucus Ql (Urine sed) 0 SEEN /hpf [facility] Nitrite Test strip Ql (U)Ord ered By: David Cooper on 11-04-2022 Nitrite Ql (U) Negative Negative [facility] No Panel Informationon 11-04 Urine Leukocytes Negatve [facility] Urine Non-Hemolyzed Blood Large [facility] Protein Test strip Ql (U)Ord ered By: David Cooper on 11-04-2022 Protein Ql (U) 15 mg/dl Negative [facility] Squamous epithelial cells de tection in urine sediment by light microscopyOrdered By: David Cooper on 11-04-2022 Epithelial cells.squamous LM Ql (Urine sed) 0-5 SEEN /hpf 5-10 [facility] Urine blood detectionOrdered By: David Cooper on 11-04-2022 RBC Ql (U) 250 /ul Negative [facility] RBC Ql (U) 0-5 SEEN /hpf 0-5 [facility] Urine clarityOrdered By: Dante Cooper on 11-04-2022 Clarity (U) Clear Clear [facility] Urine color determinationOrd ered By: Dvaid Cooper on 11-04-2022 Color (U) Yellow Yellow [facility] Urine glucose detectionOrder ed By: David Cooper on 11-04-2022 Glucose Ql (U) Normal mg/dl Normal [facility] Urine leukocyte esterase det ection by dipstickOrdered By: David Cooper on 11-04-2022 Leukocyte esterase Test strip Ql (U) Negative Negative [facility] Urine pHOrdered By: David galindo on 11-04-2022 pH (U) 7.0 [pH] 5.0 - 8.0 [facility] Urine sediment bacteria coun t by microscopy (number/high power field)Ordered By: David Cooper on 11-04-2022 Bacteria LM.HPF (Urine sed) [#/Area] RARE /hpf None Seen [facility] Urine specific gravity measu rementOrdered By: David Cooper on 11-04-2022 Specific gravity (U) [Rel density] 1.005 1.002-1.030 [facility] Urobilinogen Auto test strip Ql (U)Ordered By: David Cooper on 11-04-2022 Urobilinogen Ql (U) Normal mg/dl Normal [facility] Laboratory - Microbiology an d Antimicrobial susceptibilityon 08-16-2022 SARS-CoV-2 (COVID-19) RNA AVNI+probe Ql (Unsp spec) Detected [facility] No Panel Informationon 08-16 Influenza Types A,B Rapid (Clinic) Not detected [facility] Vital Signs Date Time Vital Sign Value Performing Clinician Faci lity 11-04-2022 12:40-0400 Body temperature 97.2 [degF] Dr. Ama Ornelas Work Phone: [facility] 11-04-2022 12:40-0400 Diastolic blood pressure 74 mm[Hg] Dr. Ama Ornelas Work Phone: [facility] 11-04-2022 12:40-0400 Heart rate 94 /min Dr. Ama Ornelas Work Phone: [facility] 11-04-2022 12:40-0400 Respiratory rate 12 /min Dr. Ama Ornelas Work Phone: [facility] 11-04-2022 12:40-0400 SaO2% (BldA) [Mass fraction] 99 % Dr. Ama Ornelas Work Phone: [facility] 11-04-2022 12:40-0400 Systolic blood pressure 118 mm[Hg] Dr. Ama Ornelas Work Phone: [facility] 10-27-2022 13:00-0500 Body height 167.[address] Ama Ornelas Work Phone: [facility] 10-27-2022 13:00-0500 Body mass index (BMI) [Ratio] 25.7 kg/m2 Dr. Ama Ornelas Work Phone: [facility] 10-27-2022 13:00-0500 Body weight 72.[address] Ama Ornelas Work Phone: [facility] 10-27-2022 13:00-0500 Diastolic blood pressure 86 mm[Hg] Dr. Ama Ornelas Work Phone: [facility] 10-27-2022 13:00-0500 Systolic blood pressure 127 mm[Hg] Dr. Ama Ornelas Work Phone: [facility] 08-16-2022 08:58-0500 Body temperature 98 [degF] Dr. Ama Ornelas Work Phone: [facility] 08-16-2022 08:58-0500 Diastolic blood pressure 74 mm[Hg] Dr. Ama Ornelas Work Phone: [facility] 08-16-2022 08:58-0500 Heart rate 95 /min Dr. Ama Ornelas Work Phone: [facility] 08-16-2022 08:58-0500 Respiratory rate 16 /min Dr. Ama Ornelas Work Phone: [facility] 08-16-2022 08:58-0500 SaO2% (BldA) [Mass fraction] 98 % Dr. Ama Ornelas Work Phone: [facility] 08-16-2022 08:58-0500 Systolic blood pressure 116 mm[Hg] Dr. Ama Ornelas Work Phone: [facility] Encounters Encounter Date Encounter Type Care Provider Facility Start: 02-07-2024 ambulatory Health Risk Assessment Facility:[facility] Start: 12-03-2023 End: 12[facility] Work Phone: Start: 12-03-2023 End: 12-03-2023 Patient encounter procedure [facility] Work Phone: Start: 12-03-2023 End: 12-03-2023 ambulatory Ama Ornelas Facility:[facility] Start: 11-07-2022 End: 11-07-[address] Ama Ornelas Work Phone: [facility] Work Phone: Start: 11-07-2022 End: 11-07-[address] Ama Ornelas Work Phone: [facility]-Laboratory,F uture Start: 11-04-2022 End: 11-04-[address] Ama Ornelas Work Phone: [facility] Work Phone: Start: 11-04-2022 End: 11-04-[address] Ama Ornelas Work Phone: [facility]-Laboratory, Specimen Start: 11-04-2022 End: 11-04-[address] Ama Ornelas Work Phone: [facility] Start: 10-27-2022 End: 10-27-[address] Ama Ornelas Work Phone: [facility] Start: 08-16-2022 End: 08-16-[address] Ama Ornelas Work Phone: [facility] Procedures Date Procedure Procedure Detail Performing Clinician Start: 12-03-2023 Nucleic acid assay Urine culture Dr. Ama Ornelas Work Phone: Plan of Treatment Date Care Activity Detail Author Calculus analysis [facility] Measurement of weight of calculus [facility] Origin of Stone [facility] Specimen color determination [facility] Immunizations Immunization Date Immunization Notes Care Provider Fa cility 07-08-2021 Covid (Moderna) Dr. Ama knott Work Phone: [facility] 06-01-2021 influenza, injectabl e, quadrivalent, preservative free [facility] 06-01-2021 influenza, seasonal, injectable Dr. Ama Ornelas Work Phone: [facility] 09-22-2020 Covid (Moderna) Dr. Ama knott Work Phone: [facility] 08-25-2020 Covid (Moderna) Dr. Ama knott Work Phone: [facility] 06-07-2020 influenza, injectabl e, quadrivalent, preservative free [facility] 06-07-2020 influenza, seasonal, injectable Dr. Ama Ornelas Work Phone: [facility] 08-25-2019 influenza, injectabl e, quadrivalent, preservative free [facility] 08-25-2019 influenza, seasonal, injectable Dr. Ama Ornelas Work Phone: [facility] 08-16-[address] Ama Ornelas Work Phone: [facility] 08-10-2016 influenza, injectabl e, quadrivalent, preservative free [facility] 08-10-2016 influenza, seasonal, injectable Dr. Ama Ornelas Work Phone: [facility] Payers Date Payer Category Payer Self-pay [id number] 2023 Unknown [id number] 2013 Unknown [facility] DO NOT USE 22 [id number] Unknown [id number] Unknown [id number] Unknown [id number] Social History Date Type Detail Facility Start: 11-04-2022 End: 05-19-2023 Tobacco smoking status SCIS Unknown if ever smoked [facility] Start: 08-02-2019 None [facility] Start: 08-01-2019 With Family [facility] Start: 2000 Sex Assigned At Female [facility] Evaluation note Note Date & Type Note Facility Evaluation note Diagnosis Onset Date COVID-19 acute Encounter for routine gyneco logical examination noneactive Hematuria acute [facility] Work Phone: Evaluation note Note Date & Type Note Facility Evaluation note No assessment information availa ble [facility] Work Phone: Chief Complaint and Reason for Visit Chief Complaint SORE THROAT/RODRIGUEZ/CONGE 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 Ama Orenlas DO Family Provider Active Dr. Ama Ornelas DO Primary Care Provider Active Team Status: Inactive Member Role Status Dates Dr. Ama Ornelas DO Primary Care Provider, Referring P rovider Active Dr. Azul Rene DO Attending Provider Activ e Team Status: Inactive Member Role Status Dates Dr. Ama Ornelas DO Primary Care Provider, Referring P rovider Active Xavier WHITE PA Attending Provider Active Team Status: Inactive Member Role Status Dates Dr. Ama Ornelas DO Primary Care Provider, Referring P rovider Active David WHITE, PA Attending Provider Active Team Status: Inactive Member Role Status Dates Dr. Ama Ornelas DO Primary Care Provider Active David WHITE PA Attending Provider Active Team Status: Inactive Member Role Status Dates Dr. Ama Ornelas DO Primary Care Provide r, Attending Provider, Referring Provider Active Goals (unrecognized section and content) Goals may be documented in a n alternate sectionGoals may be documented in an alternate sectionGoals may be documented in an alternate section INFORMATION SOURCE (unrecogn ized section and content) DATE CREATED AUTHOR 02/05/2024 [facility] FOR RECORDS PERTAINING TO PATIENTS WHO ARE OR HAVE BEEN ENROLLED IN A CHEMICAL DEPENDENCY/SUBSTANCEABUSE PROGRAM, SOME INFORMATION MAY BE OMITTED. This clinical summary was aggregated from multiple sources. Caution should be exercised in using it in the provision of clinical care. This summary normalizes information from multiple sources, and as a consequence, information in this document may materially change the coding, format and clinical context of patient data. In addition, data may be omitted in some cases. CLINICAL DECISIONS SHOULD BE BASED ON THE PRIMARY CLINICAL RECORDS. [facility] [employer] provides no warranty or guarantee of the accuracy or completeness of information in this document.
--- OUTSIDE RECORDS SUMMARY | 2025-06-17 07:36 | XMS RPT_ITS | CCD ---
Author Organization [facility] Care Team Providers Care Materials Engineering Technician Name Role Phone Dr. Ama Ornelas Primary Care Provider [phone] Dr. Ama Ornelas Referring Provider CINDY London Attending Provider [phone] Dr. Azul Rene Attending Provider [phone] CINDY Padilla Attending Provider [phone] Malys, Ama Primary Care Unavailable Malys, Ama [...] VIBRIO Not Detected Yersinia Not Detected Normal [facility] Comment on above: Performed By: #### L 500.4050, L506.0400, L100.0100, L501.5200, L501.35942, L501.9520, M100.637 #### [facility] [address] [place], [address] Absolute lymphocyte countOrd ered By: Ama Ornelas on 12-03-2023 Lymphocytes Auto (Unsp spec) [#/Vol] 1.34 10*3/uL 0.83-4.51 [facility] Automated lymphocyte count a s percentage of total leukocytesOrdered By: Ama Ornelas on 12-03-2023 Lymphocytes/100 WBC Auto (Unsp spec) 19.2 % 19-41 [facility] Basophil percentageOrdered B y: Ama Ornelas on 12-03-2023 Basophils/100 WBC (Bld) 0.4 % 0-1 [facility] Bilirubin [Mass/Vol] 0.80 mg/dL 0.20-1.00 [facility] Comment on above: For patients on eltr ombopag therapy, use of Dim[place] TBIL is not recommended. Chloride [Moles/Vol] 105 mmol/L 98-107 [facility] Eosinophils/100 WBC (Bld) 0.3 % 0-5 [facility] Glucose [Mass/Vol] 92 mg/dL 74-106 [facility] Hemoglobin (Bld) [Mass/Vol] 15.4 g/dL 12.0-15.0 [facility] Monocytes/100 WBC (Bld) 7.9 % 0-10 [facility] Neutrophils (Bld) [#/Vol] 5.0 10*3/uL 2.0-7.7 [facility] Neutrophils/100 WBC (Bld) 72.1 % 47-70 [facility] Potassium [Moles/Vol] 3.1 mmol/L 3.5-5.1 [facility] Protein [Mass/Vol] 8.1 g/dL 6.4-8.2 [facility] Sodium [Moles/Vol] 138 mmol/L 136-145 [facility] WBC (Bld) [#/Vol] 7.0 10*3/uL 4.4-11.0 [facility] CBC W/Diff, Automatedon 11-18 Absolute Lymph 1.34 X10 3/uL Normal 0.83-4.51 [facility] Comment on above: Performed By: #### L 500.4050, L506.0400, L100.0100, L501.5200, L501.54865, L501.9520, M100.637 #### [facility] [address] [facility] [place], [address] Absolute Neut 5.0 X10 3/uL Normal 2.0-7.7 [facility] Comment on above: Performed By: #### L 500.4050, L506.0400, L100.0100, L501.5200, L501.24848, L501.9520, M100.637 #### [facility] [address] [place], [address] Basophils/100 WBC (Bld) 0.4 % Normal 0-1 [facility] Comment on above: Performed By: #### L 500.4050, L506.0400, L100.0100, L501.5200, L501.62822, L501.9520, M100.637 #### [facility] [address] [place], [address] Eosinophils/100 WBC (Bld) 0.3 % Normal 0-5 [facility] Comment on above: Performed By: #### L 500.4050, L506.0400, L100.0100, L501.5200, L501.19273, L501.9520, M100.637 #### [facility] [address] [place], [address] Erythrocyte distribution width (RBC) [Ratio] 11.6 % Normal 11.6-14.6 [facility] Comment on above: Performed By: #### L 500.4050, L506.0400, L100.0100, L501.5200, L501.13382, L501.9520, M100.637 #### [facility] [address] [place], [address] Hematocrit (Bld) [Volume fraction] 43.6 % Normal 37-47 [facility] Comment on above: Performed By: #### L 500.4050, L506.0400, L100.0100, L501.5200, L501.38973, L501.9520, M100.637 #### [facility] [address] [place], [address] Hemoglobin (Bld) [Mass/Vol] 15.4 g/dL High 12.0-15.0 [facility] Comment on above: Performed By: #### L 500.4050, L506.0400, L100.0100, L501.5200, L501.30384, L501.9520, M100.637 #### [facility] [address] [place], [address] IG% 0.100 Normal 0.0-0.9 [facility] Comment on above: Result Comment: IG% - Immature Granulocytes (promyelocytes, myelocytes and metamyelocytes) > 1% indicates that a LEFT SHIFT is Present. Performed By: #### L 500.4050, L506.0400, L100.0100, L501.5200, L501.27033, L501.9520, M100.637 #### [facility] [address] [place], [address] Lymphocytes/100 WBC (Bld) 19.2 % Normal 19-41 [facility] Comment on above: Performed By: #### L 500.4050, L506.0400, L100.0100, L501.5200, L501.92095, L501.9520, M100.637 #### [facility] [address] [place], [address] MCH (RBC) [Entitic mass] 33.4 pg High 27.0-32.0 [facility] Comment on above: Performed By: #### L 500.4050, L506.0400, L100.0100, L501.5200, L501.07142, L501.9520, M100.637 #### [facility] [address] [place], [address] MCHC (RBC) [Mass/Vol] 35.3 g/dL Normal 32-36 [facility] Comment on above: Performed By: #### L 500.4050, L506.0400, L100.0100, L501.5200, L501.20771, L501.9520, M100.637 #### [facility] [address] [place], [address] MCV (RBC) [Entitic vol] 94.6 fL Normal 81-99 [facility] Comment on above: Performed By: #### L 500.4050, L506.0400, L100.0100, L501.5200, L501.55911, L501.9520, M100.637 #### [facility] [address] [place], [address] Monocytes/100 WBC (Bld) 7.9 % Normal 0-10 [facility] Comment on above: Performed By: #### L 500.4050, L506.0400, L100.0100, L501.5200, L501.43469, L501.9520, M100.637 #### [facility] [address] [place], [address] Neutrophils/100 WBC (Bld) 72.1 % High 47-70 [facility] Comment on above: Performed By: #### L 500.4050, L506.0400, L100.0100, L501.5200, L501.78612, L501.9520, M100.637 #### [facility] [address] [place], [address] Nucleated RBC (Bld) [#/Vol] 0 10*3/uL Normal 0-5 [facility] Comment on above: Performed By: #### L 500.4050, L506.0400, L100.0100, L501.5200, L501.36386, L501.9520, M100.637 #### [facility] [address] [place], [address] Platelet mean volume (Bld) [Entitic vol] 10.3 fL Normal 6.2-12.0 [facility] Comment on above: Performed By: #### L 500.4050, L506.0400, L100.0100, L501.5200, L501.26214, L501.9520, M100.637 #### [facility] [address] [place], [address] Platelets (Bld) [#/Vol] 315 10*3/uL Normal 150-450 [facility] Comment on above: Performed By: #### L 500.4050, L506.0400, L100.0100, L501.5200, L501.22640, L501.9520, M100.637 #### [facility] [address] [place], [address] RBC (Bld) [#/Vol] 4.61 10*6/uL Normal 4.2-5.4 [facility] Comment on above: Performed By: #### L 500.4050, L506.0400, L100.0100, L501.5200, L501.00640, L501.9520, M100.637 #### [facility] [address] [place], [address] RDW SD 39.6 fl Normal 35.1-43.9 [facility] Comment on above: Performed By: #### L 500.4050, L506.0400, L100.0100, L501.5200, L501.27072, L501.9520, M100.637 #### [facility] [address] [place], [address] WBC (Bld) [#/Vol] 7.0 10*3/uL Normal 4.4-11.0 [facility] Comment on above: Performed By: #### L 500.4050, L506.0400, L100.0100, L501.5200, L501.48458, L501.9520, M100.637 #### [facility] [address] [place], [address] Comprehensive Metabolic Prof cton 12-03-2023 Albumin [Mass/Vol] 4.1 g/dL Normal 3.2-5.0 [facility] Comment on above: Performed By: #### L 500.4050, L506.0400, L100.0100, L501.5200, L501.08741, L501.9520, M100.637 #### [facility] [address] [place], [address] Albumin/Globulin [Mass ratio] 1.0 {ratio} Normal 0.9-2.4 [facility] Comment on above: Performed By: #### L 500.4050, L506.0400, L100.0100, L501.5200, L501.91849, L501.9520, M100.637 #### [facility] [address] [place], [address] ALK P 52 U/L Normal 45-117 [facility] Comment on above: Performed By: #### L 500.4050, L506.0400, L100.0100, L501.5200, L501.14638, L501.9520, M100.637 #### [facility] [address] [place], [address] ALT [Catalytic activity/Vol] 36 U/L Normal 13-56 [facility] Comment on above: Performed By: #### L 500.4050, L506.0400, L100.0100, L501.5200, L501.05684, L501.9520, M100.637 #### [facility] [address] [place], [address] AST [Catalytic activity/Vol] 26 U/L Normal 15-37 [facility] Comment on above: Performed By: #### L 500.4050, L506.0400, L100.0100, L501.5200, L501.49185, L501.9520, M100.637 #### [facility] [address] [place], [address] Bilirubin [Mass/Vol] 0.80 mg/dL Normal 0.20-1.00 [facility] Comment on above: Result Comment: For patients on eltrombopag therapy, use of Dimension [place] TBIL is not recommended. Performed By: #### L 500.4050, L506.0400, L100.0100, L501.5200, L501.69860, L501.9520, M100.637 #### [facility] [address] [place], [address] BUN/CRE 7.6 RATIO Low 10-20 [facility] Comment on above: Performed By: #### L 500.4050, L506.0400, L100.0100, L501.5200, L501.87647, L501.9520, M100.637 #### [facility] [address] [place], [address] CA,Total 9.2 mg/dL Normal 8.5-10.1 [facility] Comment on above: Performed By: #### L 500.4050, L506.0400, L100.0100, L501.5200, L501.76873, L501.9520, M100.637 #### [facility] [address] [place], [address] Chloride [Moles/Vol] 105 mmol/L Normal 98-107 [facility] Comment on above: Performed By: #### L 500.4050, L506.0400, L100.0100, L501.5200, L501.24290, L501.9520, M100.637 #### [facility] [address] [place], [address] CO2 [Moles/Vol] 26.0 mmol/L Normal 21.0-32.0 [facility] Comment on above: Performed By: #### L 500.4050, L506.0400, L100.0100, L501.5200, L501.21069, L501.9520, M100.637 #### [facility] [address] [place], [address] Creatinine [Mass/Vol] 0.79 mg/dL Normal 0.55-1.02 [facility] Comment on above: Result Comment: The validity of the calculated GFR GFRAA in patients over 70 years has not been determined. Clinical correlation is essential. Performed By: #### L 500.4050, L506.0400, L100.0100, L501.5200, L501.24955, L501.9520, M100.637 #### [facility] [address] [place], [address] EST GFR - AA 115 mL/min Normal >60 [facility] Comment on above: Result Comment: Afri can Welsh GFR Calc Performed By: #### L 500.4050, L506.0400, L100.0100, L501.5200, L501.90800, L501.9520, M100.637 #### [facility] [address] [place], [address] GAP 7 Normal 5-15 [facility] Comment on above: Performed By: #### L 500.4050, L506.0400, L100.0100, L501.5200, L501.04360, L501.9520, M100.637 #### [facility] [address] [place], [address] GFR/1.73 sq M.predicted among non-blacks MDRD (S/P/Bld) [Vol rate/Area] 95 mL/min/{1.73_m2} Normal >60 [facility] Comment on above: Result Comment: Non- GFR Calc Performed By: #### L 500.4050, L506.0400, L100.0100, L501.5200, L501.96940, L501.9520, M100.637 #### [facility] [address] [place], [address] Globulin (S) [Mass/Vol] 4.0 g/dL Normal 2.2-4.2 [facility] Comment on above: Performed By: #### L 500.4050, L506.0400, L100.0100, L501.5200, L501.53742, L501.9520, M100.637 #### [facility] [address] [place], [address] Glucose [Mass/Vol] 92 mg/dL Normal 74-106 [facility] Comment on above: Performed By: #### L 500.4050, L506.0400, L100.0100, L501.5200, L501.64040, L501.9520, M100.637 #### [facility] [address] [place], [address] Potassium [Moles/Vol] 3.1 mmol/L Low 3.5-5.1 [facility] Comment on above: Performed By: #### L 500.4050, L506.0400, L100.0100, L501.5200, L501.91848, L501.9520, M100.637 #### [facility] [address] [place], [address] Sodium [Moles/Vol] 138 mmol/L Normal 136-145 [facility] Comment on above: Performed By: #### L 500.4050, L506.0400, L100.0100, L501.5200, L501.02985, L501.9520, M100.637 #### [facility] [address] [place], [address] T PROT 8.1 g/dL Normal 6.4-8.2 [facility] Comment on above: Performed By: #### L 500.4050, L506.0400, L100.0100, L501.5200, L501.70972, L501.9520, M100.637 #### [facility] [address] [place], [address] Urea nitrogen [Mass/Vol] 6 mg/dL Low 7-18 [facility] Comment on above: Performed By: #### L 500.4050, L506.0400, L100.0100, L501.5200, L501.30587, L501.9520, M100.637 #### [facility] [address] [place], [address] Determination of erythrocyte mean corpuscular volume (MCV)Ordered By: Ama Ornelas on 12-03-2023 MCV (RBC) [Entitic vol] 94.6 fL 81-99 [facility] Erythrocyte distribution wid th ratioOrdered By: Ama Ornelas on 12-03-2023 Erythrocyte distribution width (RBC) [Ratio] 11.6 % 11.6-14.6 [facility] Erythrocyte distribution wid th standard deviationOrdered By: Ama Ornelas on 12-03-2023 Erythrocyte distribution width (RBC) [Entitic vol] 39.6 fL 35.1-43.9 [facility] Free T3on 12-03-2023 Free T3 [Mass/Vol] 2.7 pg/mL Normal 2.18-3.98 [facility] Comment on above: Performed By: #### L 500.4050, L506.0400, L100.0100, L501.5200, L501.65070, L501.9520, M100.637 #### [facility] [address] [facility] [place], [address] Hematocrit Auto (Bld) [Volum e fraction]Ordered By: Ama Ornelas on 12-03-2023 Hematocrit (Bld) [Volume fraction] 43.6 % 37-47 [facility] Immature granulocytes/100 WB C Auto (Bld)Ordered By: Ama Ornelas on 12-03-2023 Immature granulocytes/100 WBC (Bld) 0.100 % 0.0-0.9 [facility] Comment on above: IG% - Immature Granu locytes (promyelocytes, myelocytes and metamyelocytes) > 1% indicates that a LEFT SHIFT is Present. Laboratory - Chemistry and C hemistry - challengeOrdered By: Ama Ornelas on 12-03-2023 Albumin/Globulin [Mass ratio] 1.0 {ratio} 0.9-2.4 [facility] ALP [Catalytic activity/Vol] 52 U/L 45-117 [facility] ALT [Catalytic activity/Vol] 36 U/L 13-56 [facility] CO2 [Moles/Vol] 26.0 mmol/L 21.0-32.0 [facility] Globulin (S) [Mass/Vol] 4.0 g/dL 2.2-4.2 [facility] Magnesium [Mass/Vol] 2.2 mg/dL 1.6-2.6 [facility] Urea nitrogen/Creatinine [Mass ratio] 7.6 mg/mg 10-20 [facility] Laboratory - Hematology and Cell countsOrdered By: Ama Ornelas on 12-03-2023 MCH (RBC) [Entitic mass] 33.4 pg 27.0-32.0 [facility] MCHC (RBC) [Mass/Vol] 35.3 g/dL 32-36 [facility] Nucleated RBC/100 WBC (Bld) [Ratio] 0 % 0-5 [facility] Platelet mean volume (Bld) [Entitic vol] 10.3 fL 6.2-12.0 [facility] Platelets (Bld) [#/Vol] 315 10*3/uL 150-450 [facility] Magnesiumon 12-03-2023 Magnesium [Mass/Vol] 2.2 mg/dL Normal 1.6-2.6 [facility] Comment on above: Performed By: #### L 500.4050, L506.0400, L100.0100, L501.5200, L501.19411, L501.9520, M100.637 #### [facility] [address] [facility] [place], [address] No Panel InformationOrdered By: Ama Ornelas on 12-03-2023 Estimated GFR (MDRD) Amer 115 mL/min >60 [facility] Comment on above: GFR Calc Estimated GFR (MDRD) Non-Af Amer 95 mL/min >60 [facility] Comment on above: Non- GFR Calc Free Triiodothyronine (T3) pg/dL 2.7 pg/mL 2.18-3.98 [facility] RBC Auto (Bld) [#/Vol]Ordere d By: Ama Ornelas on 12-03-2023 RBC (Bld) [#/Vol] 4.61 10*6/uL 4.2-5.4 [facility] Serum or plasma calcium etta urement (mass/volume)Ordered By: Ama Ornelas on 12-03-2023 Calcium [Mass/Vol] 9.2 mg/dL 8.5-10.1 [facility] Serum or plasma creatinine m easurement (mass/volume)Ordered By: Ama Ornelas on 12-03-2023 Creatinine [Mass/Vol] 0.79 mg/dL 0.55-1.02 [facility] Comment on above: The validity of the calculated GFR & GFRAA in patients over 70 years has not been determined. Clinical correlation is essential. Serum or plasma thyroid stim ulating hormone (TSH) measurement (units/volume)Ordered By: Ama Ornelas on 12-03-2023 TSH Qn 1.46 uIU/mL 0.358-3.74 [facility] Serum or plasma urea nitroge n measurement (mass/volume)Ordered By: Ama Ornelas on 12-03-2023 Urea nitrogen [Mass/Vol] 6 mg/dL 7-18 [facility] Stool enteric pathogen panel by probe and target amplification methodOrdered By: Ama Ornelas on 12-03-2023 Gastrointestinal pathogens panel AVNI+probe (Stl) [facility] T4 Free Directon 12-03-2023 T4 FREE DIRECT 1.49 ng/dL High 0.76-1.46 [facility] Comment on above: Performed By: #### L 500.4050, L506.0400, L100.0100, L501.5200, L501.16269, L501.9520, M100.637 #### [facility] [address] [place], [address] Thin prep Papanicolaou smear with manual screeningOrdered By: Ama Ornelas on 12-03-2023 Thin prep Papanicolaou smear with manual screening 4.1 g/dL 3.2-5.0 [facility] Thin prep Papanicolaou smear with manual screening 26 U/L 15-37 [facility] Thin prep Papanicolaou smear with manual screening 7 5-15 [facility] Thin prep Papanicolaou smear with manual screening 1.49 ng/dL 0.76-1.46 [facility] Thyroid Stim Hormone (TSH)on 12-03-2023 TSH 1.46 uIU/mL Normal 0.358-3.74 [facility] Comment on above: Performed By: #### L 500.4050, L506.0400, L100.0100, L501.5200, L501.86367, L501.9520, M100.637 #### [facility] [address] [place], [address] Culture, urineOrdered By: St humberto Cooper on 11-06-2022 Bacteria identified Cx Nom (U) Culture exhibits no growth. [facility] Basophil percentageOrdered B y: David Cooper on 11-04-2022 Basophil percentage 0 SEEN /hpf 0-5 [facility] Bilirubin Test strip Ql (U)O rdered By: David Cooper on 11-04-2022 Bilirubin Ql (U) Negative Negative [facility] Ketones Test strip Ql (U)Ord ered By: David Copoer on 11-04-2022 Ketones Ql (U) 15 mg/dl Negative [facility] Laboratory - Chemistry and C hemistry - challengeon 11-04-2022 HCG ( test) Ql (U) Negative [facility] Bilirubin Ql (U) Negative [facility] Glucose Ql (U) Negative [facility] Ketones Ql (U) Moderate (40+) [facility] pH (U) 5.0 [pH] [facility] Specific gravity (U) [Rel density] 1.005 [facility] Urobilinogen (U) [Mass/Vol] 0.7297865 mg/dL [facility] Laboratory - Hematology and Cell countson 11-04-2022 Hemoglobin Ql (U) Hemolyzed [facility] Laboratory - Specimen inform ationon 11-04-2022 Clarity (U) Cloudy [facility] Color (U) YELLOW [facility] Laboratory - Urinalysison Protein Ql (U) Trace [facility] Mucus LM Ql (Urine sed)Order ed By: David Cooper on 11-04-2022 Mucus Ql (Urine sed) 0 SEEN /hpf [facility] Nitrite Test strip Ql (U)Ord ered By: David Cooper on 11-04-2022 Nitrite Ql (U) Negative Negative [facility] No Panel Informationon 11-04 Urine Leukocytes Negatve [facility] Urine Non-Hemolyzed Blood Large [facility] Protein Test strip Ql (U)Ord ered By: David Cooper on 11-04-2022 Protein Ql (U) 15 mg/dl Negative [facility] Squamous epithelial cells de tection in urine sediment by light microscopyOrdered By: David Cooper on 11-04-2022 Epithelial cells.squamous LM Ql (Urine sed) 0-5 SEEN /hpf 5-10 [facility] Urine blood detectionOrdered By: David Cooper on 11-04-2022 RBC Ql (U) 250 /ul Negative [facility] RBC Ql (U) 0-5 SEEN /hpf 0-5 [facility] Urine clarityOrdered By: Dante Cooper on 11-04-2022 Clarity (U) Clear Clear [facility] Urine color determinationOrd ered By: David Cooper on 11-04-2022 Color (U) Yellow Yellow [facility] Urine glucose detectionOrder ed By: David Cooper on 11-04-2022 Glucose Ql (U) Normal mg/dl Normal [facility] Urine leukocyte esterase det ection by dipstickOrdered By: David Cooper on 11-04-2022 Leukocyte esterase Test strip Ql (U) Negative Negative [facility] Urine pHOrdered By: David galindo on 11-04-2022 pH (U) 7.0 [pH] 5.0 - 8.0 [facility] Urine sediment bacteria coun t by microscopy (number/high power field)Ordered By: David Cooper on 11-04-2022 Bacteria LM.HPF (Urine sed) [#/Area] RARE /hpf None Seen [facility] Urine specific gravity measu rementOrdered By: David Cooper on 11-04-2022 Specific gravity (U) [Rel density] 1.005 1.002-1.030 [facility] Urobilinogen Auto test strip Ql (U)Ordered By: David Cooper on 11-04-2022 Urobilinogen Ql (U) Normal mg/dl Normal [facility] - Microbiology an d Antimicrobial susceptibilityon 08-16-2022 SARS-CoV-2 (COVID-19) RNA AVNI+probe Ql (Unsp spec) Detected [facility] No Panel Informationon 08-16 Influenza Types A,B Rapid (Clinic) Not detected [facility] Vital Signs Date Time Vital Sign Value Performing Clinician Faci lity 11-04-2022 12:40-0400 Body temperature 97.2 [degF] Dr. Ama Ornelas Work Phone: [facility] 11-04-2022 12:40-0400 Diastolic blood pressure 74 mm[Hg] Dr. Ama Ornelas Work Phone: [facility] 11-04-2022 12:40-0400 Heart rate 94 /min Dr. Ama Ornelas Work Phone: [facility] 11-04-2022 12:40-0400 Respiratory rate 12 /min Dr. Ama Ornelas Work Phone: [facility] 11-04-2022 12:40-0400 SaO2% (BldA) [Mass fraction] 99 % Dr. Ama Ornelas Work Phone: [facility] 11-04-2022 12:40-0400 Systolic blood pressure 118 mm[Hg] Dr. Ama Ornelas Work Phone: [facility] 10-27-2022 13:00-0500 Body height 167.[address] Ama Ornelas Work Phone: [facility] 10-27-2022 13:00-0500 Body mass index (BMI) [Ratio] 25.7 kg/m2 Dr. Ama Ornelas Work Phone: [facility] 10-27-2022 13:00-0500 Body weight 72.[address] Ama Ornelas Work Phone: [facility] 10-27-2022 13:00-0500 Diastolic blood pressure 86 mm[Hg] Dr. Ama Ornelas Work Phone: [facility] 10-27-2022 13:00-0500 Systolic blood pressure 127 mm[Hg] Dr. Ama Ornelas Work Phone: [facility] 08-16-2022 08:58-0500 Body temperature 98 [degF] Dr. Ama Ornelas Work Phone: [facility] 08-16-2022 08:58-0500 Diastolic blood pressure 74 mm[Hg] Dr. Ama Ornelas Work Phone: [facility] 08-16-2022 08:58-0500 Heart rate 95 /min Dr. Ama Ornelas Work Phone: [facility] 08-16-2022 08:58-0500 Respiratory rate 16 /min Dr. Ama Ornelas Work Phone: [facility] 08-16-2022 08:58-0500 SaO2% (BldA) [Mass fraction] 98 % Dr. Ama Ornelas Work Phone: [facility] 08-16-2022 08:58-0500 Systolic blood pressure 116 mm[Hg] Dr. Ama Ornelas Work Phone: [facility] Encounters Encounter Date Encounter Type Care Provider Facility Start: 02-07-2024 ambulatory Health Risk Assessment Facility:[facility] Start: 12-03-2023 End: 12-03-2023 [facility] Work Phone: Start: 12-03-2023 End: 12-03-2023 Patient encounter procedure [facility] Work Phone: Start: 12-03-2023 End: 12-03-2023 ambulatory Ama Ornelas Facility:[facility] Start: 11-07-2022 End: 11-07-[address] Ama Ornelas Work Phone: [facility] Work Phone: Start: 11-07-2022 End: 11-07-[address] Ama Ornelas Work Phone: [facility]-Laboratory,F uture Start: 11-04-2022 End: 11-04-[address] Ama Ornelas Work Phone: [facility] Work Phone: Start: 11-04-2022 End: 11-04-[address] Ama Ornelas Work Phone: [facility]-Laboratory, Specimen Start: 11-04-2022 End: 11-04-[address] Ama Ornelas Work Phone: [facility] Start: 10-27-2022 End: 10-27-[address] Ama Ornelas Work Phone: [facility] Start: 08-16-2022 End: 08-16-[address] Ama Ornleas Work Phone: [facility] Procedures Date Procedure Procedure Detail Performing Clinician Start: 12-03-2023 Nucleic acid assay Urine culture Dr. Ama Ornelas Work Phone: Plan of Treatment Date Care Activity Detail Author Calculus analysis [facility] Measurement of weight of calculus [facility] Origin of Stone [facility] Specimen color determination [facility] Immunizations Immunization Date Immunization Notes Care Provider Fa cility 07-08-2021 Covid (Moderna) Dr. Ama knott Work Phone: [facility] 06-01-2021 influenza, injectabl e, quadrivalent, preservative free [facility] 06-01-2021 influenza, seasonal, injectable Dr. Ama Ornelas Work Phone: [facility] 09-22-2020 Covid (Moderna) Dr. Ama knott Work Phone: [facility] 08-25-2020 Covid (Moderna) Dr. Ama knott Work Phone: [facility] 06-07-2020 influenza, injectabl e, quadrivalent, preservative free [facility] 06-07-2020 influenza, seasonal, injectable Dr. Ama Ornelas Work Phone: [facility] 08-25-2019 influenza, injectabl e, quadrivalent, preservative free [facility] 08-25-2019 influenza, seasonal, injectable Dr. Ama Ornelas Work Phone: [facility] 08-16-[address] Ama Ornelas Work Phone: [facility] 08-10-2016 influenza, injectabl e, quadrivalent, preservative free [facility] 08-10-2016 influenza, seasonal, injectable Dr. Ama Ornelas Work Phone: [facility] Payers Date Payer Category Payer Self-pay [id number] 2023 Unknown [id number] 2013 Unknown [facility] DO NOT USE 22 [id number] Unknown [id number] Unknown [id number] Unknown [id number] Social History Date Type Detail Facility Start: 11-04-2022 End: 05-19-2023 Tobacco smoking status MSIS Unknown if ever smoked [facility] Start: 08-02-2019 None [facility] Start: 08-01-2019 With Family [facility] Start: 2000 Sex Assigned At Female [facility] Evaluation note Note Date & Type Note Facility Evaluation note Diagnosis Onset Date COVID-19 acute Encounter for routine gyneco logical examination noneactive Hematuria acute [facility] Work Phone: Evaluation note Note Date & Type Note Facility Evaluation note No assessment information availa ble [facility] Work Phone: Chief Complaint and Reason for Visit Chief Complaint SORE THROAT/RODRIGUEZ/CONGE STION 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 Ama Ornelas DO Family Provider Active Dr. Ama Ornelas [...] Inactive Member Role Status Dates Dr. Ama Ornelsa DO Primary Care Provider, Referring P rovider [...] section and content) DATE CREATED AUTHOR 02/05/2024 [facility] FOR RECORDS PERTAINING TO PATIENTS WHO [...] BE BASED ON THE PRIMARY CLINICAL RECORDS. [facility] [employer] provides no warranty or guarantee of the accuracy or completeness of information in this document.
== END | disposition home or self-care (01) ==
LOC: US 07:25
PROVIDERS: PCP Family Medicine; Referring Provider Nurse Practitioner Acute Care; Visit Provider Nurse Practitioner Acute Care
DX: R10.11 Right upper quadrant pain (principal); R11.0 Nausea; R10.A1 Flank pain, right side
CPT/HCPCS: 76705